=== PATIENT | male | born 1980 | race African-American/Black ===

== ENCOUNTER 2016-11-23 03:28 | Emergency (ER) | payer SELFPAY ==
[~2016-11-23] VITALS: Ht 182.9 cm; Wt 100.0 kg
[2016-11-23 03:42] VITALS: BP 146/97; PULSE 87; RESP 18; TEMP 98.7; O2SAT 100
[2016-11-23] MEDS ORDERED: SODIUM CHLOR 0.9% 1000 ML INJ 1,000 ML IV SCH (03:43)
[2016-11-23] MEDS ORDERED: DIPHTH/TETANUS/ACEL PERTUSSIS (BOOSTER) 0.5 ML VIAL/PFS IM ONE (03:45)
[2016-11-23] MEDS ORDERED: ONDANSETRON HCL 4 MG/2 ML VIAL IVP ONE (03:45)
[2016-11-23] MEDS ORDERED: ceFAZolin 2 GM PREMIX 50 ML IV ONE (03:45)
[2016-11-23] MEDS ORDERED: SODIUM CHLORIDE 0.9% FLUSH 10 ML FLUSH IVF PRN (03:45)
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
[2016-11-23 04:16] LABS: AUTOMATED NEUTROPHIL # 8.9 TH/MM3 (1.8-7.7); BASOPHIL # 0.1 TH/MM3 (0-0.2); BASOPHIL % 0.6 % (0.0-2.0); EOSINOPHIL % 0.4 % (0.0-4.0); HEMATOCRIT 45.9 % (39.0-51.0); HEMO FLAGS DIFF FINAL; LYMPH % 16.8 % (9.0-44.0); MEAN CELL VOLUME 95.1 FL (80.0-100.0); MEAN CORPUSCULAR HEMOGLOBIN 31.4 PG (27.0-34.0); MONO % 6.5 % (0.0-8.0); NEUT % 75.7 % (16.0-70.0); PLATELET COUNT 357 TH/MM3 (150-450); RED BLOOD COUNT 4.83 MIL/MM3 (4.50-5.90); RED CELL DISTRIBUTION WIDTH 14.3 % (11.6-17.2); WHITE BLOOD COUNT 11.8 TH/MM3 (4.0-11.0)
[2016-11-23 04:34] LABS: BICARBONATE 28.7 MEQ/L (21.0-32.0); POTASSIUM 3.7 MEQ/L (3.5-5.1)
[2016-11-23 04:37] LABS: APTT (PATIENT) 24.7 SEC (24.3-30.1); PROTHROMBIN TIME - PATIENT 10.9 SEC (9.8-11.6)
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
[2016-11-23 08:43] VITALS: BP 141/93; PULSE 85; RESP 16; O2SAT 98
[2016-11-23 10:11] VITALS: BP 139/91
== END 2016-11-23 10:14 | disposition home or self-care (01) ==
LOC: NEPE 03:28
DX: S01.81XA Laceration without foreign body of other part of head, initial encounter (principal); F10.920 Alcohol use, unspecified with intoxication, uncomplicated; Z72.0 Tobacco use
CPT/HCPCS: 12011; 70450; 70486; 71010; 72125; 80048; 80307; 85025; 85610; 85730; 90471; 90715; 96365; 96375; 99285; J0690; J2405; J7030